=== PATIENT | female | born 1950 | race Caucasian/White ===

== ENCOUNTER 2016-07-13 07:48 | Observation (INO) | payer MEDICARE, OTHER ==
[2016-07-13] VITALS (15 sets, daily range): BP systolic 122–184; BP diastolic 60–86; PULSE 60–72; RESP 11–27; Ht 160 cm; Wt 52.0 kg
[~2016-07-13] VITALS: Ht 160 cm; Wt 52.0 kg
[~2016-07-13 07:48] MED LIST: ALPR0.254 PO; AMLO-147 PO; APIX5TAB PO; ASPI81TA3 PO; BET80 PO; PRED20TA PO; PROP10TA6 PO; SERT25TA PO
[2016-07-13] MEDS ORDERED: SOD CHLORIDE 0.9% 1,000 ML IV SCH ×2 (09:00→12:34)
[2016-07-13] MEDS ORDERED: predniSONE 20 MG TAB PO SCH (09:30)
[2016-07-13] MEDS ORDERED: CIMETIDINE 300 MG TAB PO SCH (09:30)
[2016-07-13 09:33] LABS: ADD SCAN DIFF NO
[2016-07-13] MEDS ORDERED: ALPR2TAB7 PO (09:35)
[2016-07-13 09:49] LABS: ALBUMIN 4.6 g/dl (3.3-4.9)
[2016-07-13 09:51] LABS: INR 1.06; PROTIME 13.8 Sec (12.2-14.2); PT RATIO 1.1
[2016-07-13 09:52] LABS: ABNORMAL IP MESSAGE 1; ALBUMIN/GLOBULIN RATIO 1.64; BASOPHILS % 0.1 % (0.0-2.0); BILIRUBIN,INDIRECT 0.2 mg/dl (0-1.1); BILIRUBIN,TOTAL 0.2 mg/dl (0.2-1.3); HEMATOCRIT 40.2 % (37.0-47.0); HEMOGLOBIN 13.8 g/dl (12.0-16.0); LYMPHOCYTES # 0.5 10^3/ul (0.8-2.9); LYMPHOCYTES % 7.2 % (15.0-51.0); MEAN CORPUSCULAR HEMOGLOBIN 32.7 pg (29.0-33.0); MEAN CORPUSCULAR HGB CONC 34.3 g/dl (32.0-37.0); MEAN CORPUSCULAR VOLUME 95.3 fl (82.0-101.0); MEAN PLATELET VOLUME 11.8 fl (7.4-10.4); MONOCYTES % 0.6 % (0.0-11.0); NEUTROPHIL # 6.2 10^3/ul (1.6-7.5); NEUTROPHILS % 91.7 % (39.0-77.0); PLATELET COUNT 237 10^3/UL (140-415); RED BLOOD COUNT 4.22 10^6/ul (4.20-5.40); RED CELL DISTRIBUTION WIDTH 12.6 % (11.5-14.5); TOTAL PROTEIN 7.4 g/dl (6.1-8.1); WHITE BLOOD COUNT 6.8 10^3/ul (4.8-10.8)
[2016-07-13] MEDS ORDERED: LIDOCAINE 1% (MDV) 20 ML INJ ONE (09:59)
[2016-07-13] MEDS ORDERED: IODIXANOL LOCM 100 ML BTL ONE ×3 (09:59→11:26)
[2016-07-13] MEDS ORDERED: MIDAZOLAM 1 MG/ML 2 ML INJ ONE (10:00)
[2016-07-13] MEDS ORDERED: FENTAnyl 50 MCG/ML VIAL ONE ×2 (10:00→12:01)
[2016-07-13 10:01] LABS: CALCIUM 9.6 mg/dl (8.4-10.2); CHOL/HDL RATIO 1.8 RATIO; CK-MB 0.49 ng/ml (0.0-2.4); CREATININE 0.69 mg/dl (0.44-1.00); POTASSIUM 3.6 mmol/L (3.5-5.1)
[2016-07-13 10:04] LABS: TROPONIN-I 0.02 ng/ml (0.00-0.12)
[2016-07-13] MEDS ORDERED: CLOP75TA27 PO (10:05)
[2016-07-13] MEDS ORDERED: ACYC400T2 PO (10:06)
[2016-07-13] MEDS ORDERED: NEBI10TA2 PO (10:06)
[2016-07-13] MEDS ORDERED: FOLIC ACID (10:07)
[2016-07-13] MEDS ORDERED: VIT D (10:08)
[2016-07-13] MEDS ORDERED: DIPHENHYDRAMINE 50 MG INJ ONE (10:15)
[2016-07-13] MEDS ORDERED: METOPROLOL 5 MG INJ ONE (10:46)
[2016-07-13] MEDS ORDERED: VERAPAMIL 5 MG INJ ONE (11:17)
[2016-07-13] MEDS ORDERED: BIVALIRUDIN 250MG /NS 50 ML 50 ML IVPB ONE (11:17)
[2016-07-13] MEDS ORDERED: NITROGLYCERIN (IC) 100 MCG/ML INJ ONE (11:17)
[2016-07-13] MEDS ORDERED: IODIXANOL LOCM 50 ML BTL ONE (11:26)
[2016-07-13 11:55] LABS: PARTIAL THROMBOPLASTIN TIME 23.7 Sec (25.0-35.0)
--- NOTE | 2016-07-13 14:10 | SP ---
DATE OF PROCEDURE: 07/13/2016 NAME OF PROCEDURE: 1. Left heart catheterization, right and left coronary angiography, selective graft angiography. 2. Aortic root angiogram. 3. Unsuccessful PCI of the chronic total occlusion of the right coronary artery. SURGEON: Elvis Aguilar MD INDICATIONS: A 66-year-old female with history of coronary artery disease, status post bypass surge ry as well as PCI of the LAD, who was recommended to undergo diagnostic angiography because of angin al chest pain as well as abnormal stress test. FINDINGS: 1. Left main coronary artery is a large vessel, has about 50% distal stenosis. 2. Left anterior descending artery. The stent is widely patent. Diagonal is 100% occluded. 3. GOTTLIEB to LAD appeared to be occluded distally. The saphenous vein graft diagonal is patent. 4. Left circumflex artery is 100% occluded at the proximal to mid-level. 5. Saphenous vein graft to the obtuse marginal is patent. 6. Right coronary artery is 100% occluded in the mid-level consistent with chronic total occlusion, heavy calcification at the mid-level. Saphenous vein graft to the distal right coronary artery whi ch goes to the PDA is patent. The posterolateral artery area previously was filled with the right c oronary artery itself, but is not filling any more. 7. LV systolic pressure was 208. LVEDP of 24. 8. No significant gradient across the aortic valve noted. PROCEDURE IN DETAIL: Written informed consent was obtained. Risks and benefits were discussed with the patient. The patient was brought to the bundle tier and labeler and placed in supine position. Right and lef t groins were prepped and draped in sterile fashion. Right groin was anesthetized with 1% lidocaine . Using modified Seldinger technique a 6-Bermudian sheath was placed in the right femoral artery. A J L4 catheter was advanced to engage the left main coronary artery. Angiogram was obtained. JR4 cath eter was advanced into the right coronary artery. Angiogram was obtained. We tried to advance and engage to different ____; it was very difficult to engage the graft. Finally, we were able to engag e the saphenous vein graft to obtuse marginal. Angiogram was obtained. Then it was placed in the l eft internal mammary artery. Angiogram was obtained. A different catheter including bypass graft w as used. Review of the old film showed that the distal right coronary artery was previously patent at this level. The JR4 catheter was advanced to the left main, hemodynamics recorded. Pullback aor tic pressure was measured. At this time, I decided to perform PCI of the right coronary artery if p ossible. JR4 guiding catheter was advanced in the right coronary artery. Multiple wires were used to cross into the lesion which was unsuccessful. Wire appeared to not go through the lesion itself. The guide was used and the left saphenous vein ____ diagonal was found with this. Angiogram was o btained. Then, I decided to perform the aortic root. Aortic root angiogram was performed which froylan wed a graft to right coronary artery is patent. Finally, with right bypass graft catheter we were a ble to advance into the right coronary artery. Angiogram of the aorta was obtained. It was engaged in the right coronary artery, then it was placed into the saphenous ____ was obtained. Catheter an d Glidewire were removed. Right femoral angiogram was performed. Perclose was successfully deploye d. Patient tolerated the procedure without complications. IMMEDIATE COMPLICATIONS: None. TOTAL CONTRAST USED: 200 mL Visipaque. CONCLUSION: Coronary angiography shows patent graft. However, posterolateral artery and distal RCA is not filled by the grafts. RECOMMENDATIONS: Aggressive medical therapy. We will consider very high risk PCI of the chronic to brad occlusion of the right coronary artery, mostly likely it will have to be done through the retrog rade approach if the patient continues to have angina despite medical therapy. Dictated By: ELVIS MOURA/BIBIANA Conf#: [id number] DID#: [id number]
[2016-07-13] MEDS: ACETYLCYSTEINE 600 MG CAP PO SCH ×2 (14:39→21:02)
[2016-07-13] MEDS: AMLODIPINE 10 MG TAB PO SCH (14:39)
--- NOTE | 2016-07-13 14:46 | RADRPT ---
Vent Rate: 61 bpm RR Interval: 0 msec WV Interval: 146 msec QRS Duration: 84 msec QT Interval: 440 msec QTC Interval: 442 msec P-R-T [place]: 70 - 82 - 100 degrees Normal sinus rhythm Nonspecific ST and T wave abnormality Abnormal ECG Electronically Signed By: Gee Forde [id number]
[2016-07-13] MEDS: ACETAMINOPHEN 325 MG TAB PO PRN ×2 (16:21→21:02)
--- NOTE | 2016-07-13 17:56 | HP ---
DATE OF ADMISSION: 07/13/2016 CHIEF COMPLAINT: Status post cardiac catheterization. HISTORY OF PRESENT ILLNESS: This is a 66-year-old female with a past medical history of coronary ar kathleen disease status post bypass in 2007, history of PCI, history of giant cell arteritis, and histor y of subclavian stenosis who presents to [facility] to undergo elective cardiac ca theterization. The patient had a recent history of chest pain. She was seen by her director information, Paige Aguilar. The patient came to [facility] and underwent elective cardiac catheter ization. The patient was noted to have total occlusion of right coronary artery. The patient, heriberto montaño, was unable to have successful PCI of the right coronary artery. The patient, after procedure, was placed in recovery for evaluation. Upon my evaluation of patient at this time, she is currently stable. Denies any chest pain, fevers, chills, nausea, vomiting, or shortness of breath. PAST MEDICAL HISTORY: As stated above, history of coronary artery disease, history of giant cell ar teritis, history of hypertension. PAST SURGICAL HISTORY: Includes multivessel bypass, history of subclavian stenosis with PCI, histor y of angioplasty of subclavian artery, history of hypertension, and anxiety disorder. ALLERGIES: NO KNOWN DRUG ALLERGIES. FAMILY HISTORY: Positive for coronary artery disease. SOCIAL HISTORY: Does not drink, smoke, or do drugs. MEDICATIONS: The patient's medications have been reviewed and reconciled. REVIEW OF SYSTEMS: A 14-point review of systems was conducted. Pertinent positives stated in HPI; otherwise negative. PHYSICAL EXAMINATION: VITAL SIGNS: Blood pressure 136/69, respiration 12, pulse 64, temperature 98.2. HEENT: Head is normocephalic. Pupils are reactive to light. NECK: Supple. HEART: Regular rate. LUNGS: Show diminished breath sounds at the base. ABDOMEN: Soft, nontender to palpation. No rebound or guarding. EXTREMITIES: Negative for clubbing, cyanosis, no edema. DERMATOLOGIC: No rashes. MUSCULOSKELETAL: No joint effusions. NEUROLOGIC: No change in exam. MEDICATIONS: The patient's medications have been reviewed. LABORATORY DATA: Shows white count 6.8, hemoglobin 13.8, hematocrit 40.2, platelet count is 237. S odium 143, potassium 2.6, chloride 103, BUN 16, creatinine 0.69. Cholesterol 225, HDL 121, LDL 95. ASSESSMENT AND PLAN: This is a 66-year-old female who presents with 1. Coronary artery disease. The patient is status post cardiac catheterization with total occlusio n of right coronary artery. The patient was not able to have a successful PCI of the right coronary artery. Plan at this point is to continue current medical management. We will continue aspirin an d continue Bystolic. We will follow up with cardiology for further recommendations. 2. Hypertension. Continue current blood pressure regimen of Norvasc and Bystolic. 3. History of giant cell arteritis. Continue prednisone. 4. Depression. Continue Zoloft. 5. Gastrointestinal and deep venous thrombosis prophylaxis. Continue Tagamet and sequential leg sq ueezers. 6. Anxiety disorder. Continue alprazolam p.r.n. Please note I spent over 25 minutes of face to face time with this patient discussing code status. The patient is FULL CODE. Dictated By: GABY JAQUEZ/BIBIANA Conf#: [id number] DID#: [id number]
[2016-07-13] MEDS ORDERED: ASPIRIN 81 MG TAB PO SCH (21:00)
[2016-07-14] VITALS (10 sets, daily range): BP systolic 122–147; BP diastolic 60–76; PULSE 54–104; RESP 16–20
[2016-07-14] MEDS: ACETAMINOPHEN 325 MG TAB PO PRN (04:31)
[2016-07-14 06:10] LABS: ADD SCAN DIFF NO
[2016-07-14 06:15] LABS: BASOPHILS % 0.1 % (0.0-2.0); EOSINOPHILS % 0.3 % (0.0-7.0); HEMATOCRIT 33.7 % (37.0-47.0); HEMOGLOBIN 11.3 g/dl (12.0-16.0); LYMPHOCYTES # 1.6 10^3/ul (0.8-2.9); LYMPHOCYTES % 22.2 % (15.0-51.0); MEAN CORPUSCULAR HEMOGLOBIN 32.5 pg (29.0-33.0); MEAN CORPUSCULAR HGB CONC 33.5 g/dl (32.0-37.0); MEAN CORPUSCULAR VOLUME 96.8 fl (82.0-101.0); MEAN PLATELET VOLUME 11.7 fl (7.4-10.4); MONOCYTE # 0.6 10^3/ul (0.3-0.9); MONOCYTES % 8.7 % (0.0-11.0); NEUTROPHIL # 4.8 10^3/ul (1.6-7.5); NEUTROPHILS % 68.3 % (39.0-77.0); PLATELET COUNT 203 10^3/UL (140-415); RED BLOOD COUNT 3.48 10^6/ul (4.20-5.40); RED CELL DISTRIBUTION WIDTH 12.5 % (11.5-14.5)
[2016-07-14 06:23] LABS: POTASSIUM 3.3 mmol/L (3.5-5.1)
[2016-07-14 06:26] LABS: CREATININE 0.61 mg/dl (0.44-1.00)
[2016-07-14 06:27] LABS: CALCIUM 8.8 mg/dl (8.4-10.2)
[2016-07-14] MEDS ORDERED: POTASSIUM CHLORIDE (SR) 20 MEQ TAB PO STA (07:23)
--- NOTE | 2016-07-14 07:58 | PN ---
DATE: 07/14/2016 SUBJECTIVE: The patient is stable. Overnight the patient was noted to have AFib with a rate around 90s. The patient also has some pain in her groin catheter site. No other events noted. No hemopt ysis, hematemesis or hematochezia. OBJECTIVE: VITAL SIGNS: Blood pressure 122/65, respirations 20, pulse is 96, temperature 98.3. HEENT: Head is normocephalic. Pupils are reactive to light. NECK: Supple. HEART: Irregularly irregular. LUNGS: Show diminished breath sounds at base. ABDOMEN: Soft, nontender to palpation without rebound or guarding. EXTREMITIES: Negative for clubbing, cyanosis, no edema. DERMATOLOGIC: No rashes. MUSCULOSKELETAL: No joint effusions. NEUROLOGIC: No change in exam. MEDICATIONS: The patient's medications have been reviewed. LABORATORY DATA: Shows a sodium of 142, potassium 3.3, BUN 16, creatinine 0.61. White count 7.0, h emoglobin 11.3, hematocrit 33.7, platelet count 203. ASSESSMENT AND PLAN: 1. Coronary artery disease. The patient is status post cardiac catheterization with noted total oc clusion of right coronary artery. The patient is unable to have a percutaneous coronary interventio n of the right coronary artery. At this point, continue current medical management. Continue aspi rin, , Plavix. Follow up with cardiology for further recommendations. 2. History of paroxysmal atrial fibrillation. The patient is currently rate controlled. Will cont inue current medical management. Will defer full anticoagulation to machine setter automatic, Dr. Aguilar. The patient states she had a previous history of bleeding. Continue Bystolic. 3. Hypertension. Continue current blood pressure regimen. Kumar Smith. 4. History of giant cell arteritis. Continue prednisone. 5. Depression. Continue Zoloft. 6. Anxiety disorder. Continue alprazolam. 7. Gastrointestinal and deep vein thrombosis prophylaxis. Continue Tagamet and sequential leg sque ezers. 8. Hypokalemia, replete with potassium chloride 40 mEq p.o. x1. 9. Anemia. Etiology is likely dilutional from IV fluids. Will continue to monitor. No gross blee ding noted at this time. Dictated By: GABY JAQUEZ/BIBIANA Conf#: [id number] DID#: [id number]
[2016-07-14] MEDS: ACETYLCYSTEINE 600 MG CAP PO SCH (08:14)
[2016-07-14] MEDS: AMLODIPINE 10 MG TAB PO SCH (08:14)
[2016-07-14] MEDS ORDERED: predniSONE 5 MG TAB PO SCH (09:00)
[2016-07-14] MEDS ORDERED: NEBIVOLOL 5 MG TAB PO SCH (09:00)
[2016-07-14] MEDS ORDERED: SERTRALINE 50 MG TAB PO SCH (09:00)
--- NOTE | 2016-07-14 18:23 | PN ---
DATE: 07/14/2016 CARDIOLOGY FOLLOWUP SUBJECTIVE: Discussed with the staff. Rhythm strip was reviewed. The patient atrial fibrill ation, back in sinus rhythm. No chest pain or pressure, wants to go home. MEDICATIONS: Reviewed. PHYSICAL EXAMINATION: VITAL SIGNS: Temperature 97.9, heart rate of 68, blood pressure 144/67, respiratory rate of 18. HEENT: Normocephalic, atraumatic. Pupils are equal. No acute distress. CARDIOVASCULAR: Regular rate and rhythm. PULMONARY: With no wheezes. GASTROINTESTINAL: Soft, nontender. EXTREMITIES: No significant lower extremity edema. NEUROLOGIC: Awake and alert. PSYCHIATRIC: Calm, pleasant. LABORATORY DATA: WBC of 7, hemoglobin 11.2, platelets of 203. Sodium 142, potassium 3.3, BUN of 16 , creatinine 0.61, glucose of 90. Cholesterol 225, LDL 95, HDL of 121. ASSESSMENT AND PLAN: 1. Coronary artery disease, status post coronary bypass graft, status post percutaneous coronary i ntervention. 2. Hypertension. 3. Angina. RECOMMENDATIONS: We will continue trial of medical therapy for now. We will consider high risk PCI of right coronary artery through the graft if the patient , after more aggressive medical ther apy. Discharge planning for today. Dictated By: ELVIS MOURA/BIBIANA Conf#: [id number] DID#: [id number] CC: GABY HOLLOWAY DO;*EndCC*
== END 2016-07-14 16:26 | disposition home or self-care (01) ==
LOC: SDS 07:48 → TEL 18:35 → SDS 18:35 → INTOOBSV 18:35
PROVIDERS: ADMIT Internal Medicine Interventional Cardiology; ATTEND Internal Medicine Interventional Cardiology
DX: I25.10 Atherosclerotic heart disease of native coronary artery without angina pectoris (principal); I10 Essential (primary) hypertension; F41.9 Anxiety disorder, unspecified
CPT/HCPCS: 80048; 80053; 80061; 82550; 82553; 84484; 85025; 85610; 85730; 93005; 93459; C1760; C1769; C1887; C1894; G0378; J0583; J1200; J1644; J2250; J3010; J7512; Q9967

== ENCOUNTER 2017-12-08 10:54 | Emergency (ER) | END 2017-12-08 16:31 | disposition home or self-care (01) ==